=== PATIENT | male | born 1980 | race Caucasian/White ===

== ENCOUNTER 2017-01-08 17:48 | Emergency (ER) | payer SELFPAY ==
[2017-01-08 18:01] VITALS: BP 139/89; PULSE 94; RESP 16; TEMP 98.5; O2SAT 99
== END 2017-01-08 18:04 | disposition left against medical advice (07) ==
LOC: H.ER 17:48
DX: Z02.89 Encounter for other administrative examinations (principal)

== ENCOUNTER 2017-02-23 11:19 | Emergency (ER) | payer MEDICAID ==
[2017-02-23 11:34] VITALS: BP 158/84; PULSE 76; RESP 20; TEMP 97.4; O2SAT 100
--- NOTE | 2017-02-23 13:10 | CT ---
PROCEDURE: CT HEAD WITHOUT CONTRAST. HISTORY: head injury ETOH COMPARISON: None available. TECHNIQUE: Axial computed tomography images were obtained through the head/brain without intravenous contrast. Radiation dose: Total exam DLP = 970.10 mGy-cm. This CT exam was performed using one or more of the following dose reduction techniques: Automated exposure control, adjustment of the mA and/or kV according to patient size, and/or use of iterative reconstruction technique. FINDINGS: HEMORRHAGE: No intracranial hemorrhage. BRAIN: Siddiqui-white matter differentiation is preserved. There is no mass, mass effect or abnormal extra-axial fluid collection. VENTRICLES: The ventricles are normal in size, shape and configuration. CALVARIUM: There is no calvarial fracture or extracranial soft tissue swelling. PARANASAL SINUSES: Predominantly clear. MASTOID AIR CELLS: Predominantly clear. OTHER FINDINGS: None. IMPRESSION: No acute intracranial abnormality.
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
== END 2017-02-23 13:52 | disposition home or self-care (01) ==
LOC: H.ER 11:19
DX: S09.90XA Unspecified injury of head, initial encounter (principal); H11.30 Conjunctival hemorrhage, unspecified eye; Y04.0XXA Assault by unarmed brawl or fight, initial encounter; Y92.89 Other specified places as the place of occurrence of the external cause

== ENCOUNTER 2017-04-12 23:49 | Emergency (ER) | payer MEDICAID ==
--- NOTE | 2017-04-13 00:39 | ED PDOC ---
HPI: Psych/Substance Abuse Time Seen by Provider: 04/13/17 00:10 Chief Complaint (Nursing): Alcohol Ingestion Chief Complaint (Provider): Alcohol Ingestion ED Caveat: Intoxicated, Uncooperative History Per: Patient History/Exam Limitations: no limitations Current Symptoms Are (Timing): Still Present Modifying Factor(s): Alcohol Additional Complaint(s): 36 year old male brought in by EMS presents to ED due to alcohol intoxication and has no past medical history as per previous ED visits. EMS states patient was found in the streets behaving bizarrely, acting uncooperative and aggressive. Upon arrival to ED patient is cursing and attacking staff. PCP: Unknown Past Medical History Reviewed: Nursing Documentation Vital Signs: Last Vital Signs Temp 98.2 F 04/12/17 23:51 Pulse Resp 18 04/12/17 23:51 BP Pulse Ox - Medical History PMH: No Chronic Diseases - Surgical History Surgical History: No Surg Hx - Family History Family History: States: Unknown Family Hx - Social History Alcohol: > 2 Drinks/Day - Immunization History Hx Tetanus Toxoid Vaccination: No Hx Influenza Vaccination: No Hx Pneumococcal Vaccination: No - Home Medications Home Medications: Ambulatory Orders Medication Instructions Recorded Bacitracin 1 gm TOP BID #1 tube 09/21/14 Ibuprofen [Motrin] 600 mg PO TID PRN #20 tab 09/21/14 Eye Patch [Opticlude] 1 each MC DAILY #1 each 02/23/17 Ibuprofen [Motrin] 400 mg PO Q6 #30 tab 02/23/17 Polymyxin/Trimethoprim Sulfate 100 drop OD BID #1 bottle 02/23/17 [Polytrim Ophth Soln] - Allergies Allergies/Adverse Reactions: Allergies Allergy/AdvReac Type Severity Reaction Status Date / Time No Known Allergies Allergy Verified 01/08/17 17:58 Review of Systems Review Of Systems: ROS cannot be obtained secondary to pt's inabilty to answer questions. Physical Exam - Reviewed Nursing Documentation Reviewed: Yes - Physical Exam Appears: Positive for: Non-toxic Head Exam: Positive for: ATRAUMATIC, NORMAL INSPECTION Skin: Positive for: Normal Color, Dry Eye Exam: Positive for: Normal appearance Cardiovascular/Chest: Positive for: Regular Rate, Rhythm Respiratory: Negative for: Respiratory Distress Extremity: Positive for: Normal ROM. Negative for: Deformity Neurologic/Psych: Positive for: Alert, Gait (unsteady), Other ((+) slurred speech). Negative for: Oriented Medical Decision Making Medical Decision Makin Initial impression: alcohol intoxication Initial plan: * EtOH serum * Ativan 2mg IM * Haldol 5mg IM * Restraints Due to patient's aggressive behavior with staff and alcohol-induced psychosis, patient was restrained and 5&2'd. Scribe Attestation: Documented by Brooklynn Bashir acting as a scribe for Víctor Tee MD. Scribe Attestation: All medical record entries made by the Scribe were at my direction and personally dictated by me. I have reviewed the chart and agree that the record accurately reflects my personal performance of the history, physical exam, medical decision making, and the department course for this patient. I have also personally directed, reviewed, and agree with the discharge instructions and disposition. Disposition - Clinical Impression Clinical Impression: Alcohol dependence - Patient ED Disposition Is Patient to be Admitted: Transfer of Care Counseled Patient/Family Regarding: Studies Performed, Diagnosis - Disposition Referrals: [facility] [Outside] [facility] [Outside] [facility] [Outside] Disposition Time: 07:00 Condition: FAIR Forms: [facility] (Rwandan) Patient Signed Over To: Casi Main Present On Arrival: Cath Associated UTI
[2017-04-13 09:57] VITALS: BP 106/68; PULSE 86; RESP 18; TEMP 98; O2SAT 98
--- NOTE | 2017-04-13 10:13 | ED PDOC ---
- ECG O2 Sat by Pulse Oximetry: 98 Medical Decision Making Medical Decision Making: patient is now awake alert and cooperative. gait is steady as witnessed walk to the bathroom steadily Disposition Doctor Will See Patient In The: Office - Clinical Impression Clinical Impression: Alcohol dependence - POA Present On Arrival: None - Disposition Referrals: [facility] [Outside] [email or web address] [Outside] [facility] [Outside] Disposition: Routine/Home Disposition Time: 09:45 Condition: STABLE Forms: [facility] (Sinhala)
== END 2017-04-13 10:23 | disposition home or self-care (01) ==
LOC: H.ER 23:49
DX: F10.229 Alcohol dependence with intoxication, unspecified (principal); F29 Unspecified psychosis not due to a substance or known physiological condition
CPT/HCPCS: 80320; 96372; 99284; J1630; J2060

== ENCOUNTER 2017-05-31 14:39 | Emergency (ER) | payer MEDICAID, OTHER ==
[2017-05-31 14:43] VITALS: RESP 18; O2SAT 99
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
[2017-05-31 19:15] VITALS: PULSE 94; TEMP 98
[2017-05-31 21:39] VITALS: BP 105/71
== END 2017-05-31 21:39 | disposition home or self-care (01) ==
LOC: H.ER 14:39
DX: F10.129 Alcohol abuse with intoxication, unspecified (principal); Y90.8 Blood alcohol level of 240 mg/100 ml or more
CPT/HCPCS: 80320; 82948; 96372; 99283; J1630